=== PATIENT | male | born 1950 | race Hispanic/Latino ===

== ENCOUNTER 2017-10-22 10:03 | Day surgery (SDC) | payer MEDICARE ==
[2017-10-14 10:13] VITALS: BMI 25.4
[2017-10-22] MEDS ORDERED: ceFAZolin IV 2 gm in Dextrose 2 GM/50 ML BAG IVPB ONE (11:07)
[2017-10-22] MEDS ORDERED: Lidocaine 1% Inj (20ml) IJ ONE (11:07)
[2017-10-22] MEDS ORDERED: Bupivacaine 0.5% Inj(30mL) IJ ONE (11:07)
[2017-10-22] MEDS ORDERED: Bupivacaine 0.5% Inj(30mL) ONE (11:15)
[2017-10-22] MEDS ORDERED: Sodium Chloride 0.9% 1,000 ML IV SCH (11:15)
[2017-10-22] MEDS ORDERED: Lidocaine 1% Inj (20ml) ONE (11:15)
--- NOTE | 2017-10-22 11:21 | CP.SDSHP ---
Same Day Surgery H & P - History Proposed Procedure: R- Bunionectomy, Cheilectomy Pre-Op Diagnosis: Right hallux abductovalgus - Allergies Allergies: Allergies mold Allergy (Verified 10/22/17 11:11) COUGH - Physical Exam Vital Signs: Vital Signs 10/22/17 10/22/17 10:58 11:05 Temperature 98.3 F Pulse Rate 68 68 Respiratory 18 Rate Blood Pressure 126/75 O2 Sat by Pulse 97 Oximetry Neuro: WNL - {Optional Preform as Required} Ortho: Other - Date & Time Date: 10/22/17 Time: 11:21 Short Stay Discharge - Short Stay Discharge Admitting Diagnosis/Reason for Visit: M20.21,M20.10 Disposition: HOME/ ROUTINE Referrals: Ilana Desai DPM [Primary Care Provider] - Additional Instructions (Diet, Activity): -Patient in good/stable condition for discharge home -Pt to resume medications per medical reconciliation -Resume regular diet Please keep dressing clean, dry, & intact to surgical site -Use plastic bag over bandage for showering -Wear post op shoe at all times when ambulating -Call clinic if you see signs of infection (redness, swelling, malodor) -Please make an appointment to see Dr. Desai in office/clinic within 1 week for post-op check Progress Note/Discharge Note with Instructions: - Patient evaluated bedside in recovery s/p surgical procedure. - After surgical procedure patient in NAD - (+) Void, (+) Appetite - Capillary refill time <3s and NVSI intact. - Patient denies complaints at this time - Post operative instructions and plan of care explained to patient at length. - Pt. acknowledges understanding. - Patient stable for DC per podiatric surgery
--- NOTE | 2017-10-22 11:24 | CP.PCM.PN ---
Subjective - Date & Time of Evaluation Date of Evaluation: 10/22/17 Time of Evaluation: 11:22 - Subjective Subjective: 67 year old male patient seen and evaluated at bedside prior to right first ray surgery. Patient reports that she has been NPO since yesterday night. Patient denies of any adverse reaction to anesthesia. Patient denies of any recent F/N/V /C/SOB/CP today. Patient denies of any other pedal complains at this time and is aware of the correct procedure. PMHx: Denies PSHx: GI procedure Allergies: N.K.D.A SHx: Denies smoking, EtOH or illicit drug usage Objective - Vital Signs/Intake and Output Vital Signs (last 24 hours): Temp Pulse Resp BP Pulse Ox 98.3 F 68 18 126/75 97 10/22/17 10:58 10/22/17 11:05 10/22/17 10:58 10/22/17 10:58 10/22/17 10:58 - Medications Medications: Current Medications Cefazolin Sodium/Dextrose (Ancef Iv 2 Gm Duplex) 2 gm in 50 mls @ 50 mls/hr IVPB ONCE ONE PRN Reason: Protocol Stop: 10/22/17 12:06 Sodium Chloride (Sodium Chloride 0.9%) 1,000 mls @ 110 mls/hr IV .[id number] [facility] Stop: 10/23/17 11:08 - Constitutional Appears: Well, Non-toxic, No Acute Distress - Extremities Exam Additional comments: VASC: DP/PT pulses are palpable 2/4 B/L. Cap refill time: < 3 seconds to all digits. Skin temperature warm to cool from proximal to distal. no pitting or non -pitting edema noted DERM: no onen lesions, no inter digital maceration, mild erythema noted on the dorso-medial aspect of the 1st MTPJ, nails are cut to hygenic length, no clinical suspicion of active infection NEURO: Epicritic and protective sensation intact ORTHO: Lateral translation of hallux at the level of 1st MTPJ decreasing the 1st interspace space, no pain during AROM and PROM at 1st MTPJ, minimal traking with trackbound noted - Neurological Exam Neurological Exam: Alert, Awake, Oriented x3 - Psychiatric Exam Psychiatric exam: Normal Affect, Normal Mood Assessment and Plan - Assessment and Plan (Free Text) Assessment: 67 year old male patient with no significant PMHx was seen and evaluated for right first ray procedure Plan: Pt was seen and examined in SDS Pt NPO status was confirmed All pre-op testing and clearance in chart Pt has exhausted all conservative treatment at this time and is opting for surgical intervention Pt was explained procedure and post-operative course All pt's questions were answered to satisfaction No guarantees were made Pt understands all risks, benefits and complications of procedure Pt will follow-up with Dr. Desai within 1 week of surgery
[2017-10-22] MEDS ORDERED: Lactated Ringer's 1,000 ML IV ONE (12:00)
[2017-10-22] MEDS ORDERED: Midazolam 2 MG/2 ML VIAL ONE (12:00)
[2017-10-22] MEDS ORDERED: Propofol 10 mg/ml Inj (20 ML) ONE ×2 (12:00→12:02)
[2017-10-22] MEDS ORDERED: Succinylcholine 200 mg/10 ml Inj IV ONE (12:01)
[2017-10-22] MEDS ORDERED: Oxycodone/Acetaminophen 5/325 mg Tab PO PRN ×2 (13:23)
--- NOTE | 2017-10-22 13:27 | PCM.SURG1 ---
Surgeon's Initial Post Op Note - Surgeon's Notes Surgeon: Dr. Desai Lacquer Sizer: Dr. bales PGY-2 Type of Anesthesia: IV Sedation, Local Anesthesia Administered By: Dr. Roman Pre-Operative Diagnosis: right foot hallux valgus deformity/ hallux limitus Operative Findings: see dictation. 3-0 vicryl, 4-0 vicryl, 4-0 nylon Post-Operative Diagnosis: same Operation Performed: right foot bunionectomy/ cheilectomy Specimen/Specimens Removed: bone Estimated Blood Loss: EBL {In ML}: 2 Blood Products Given: N/A Drains Used: No Drains Post-Op Condition: Good Date of Surgery/Procedure: 10/22/17 Time of Surgery/Procedure: 12:00
[2017-10-22] MEDS ORDERED: Lactated Ringer's 1,000 ML IV SCH (13:30)
[2017-10-22 14:39] VITALS: RESP 18
[2017-10-22 15:19] VITALS: BP 126/80; PULSE 62; TEMP 97.3; O2SAT 96
--- NOTE | 2017-10-23 00:14 | OP ---
PROCEDURE DATE: 10/22/2017 PREOPERATIVE DIAGNOSES: 1. Right foot painful hallux valgus deformity. 2. Right foot painful hallux limitus deformity. POSTOPERATIVE DIAGNOSES: 1. Right foot painful hallux valgus deformity. 2. Right foot painful hallux limitus deformity. PROCEDURE: 1. Right foot surgical repair of hallux valgus deformity with bunionectomy. 2. Right foot surgical repair of hallux limitus with cheilectomy. SURGEON: Ilana Shah DPM IT ARCHITECTURE ANALYST: Palak Hernandez DPM, PGY-2 ANESTHESIOLOGIST: Keely Roman MD TYPE OF ANESTHESIA: IV sedation with local. INDICATIONS: The patient is a 67-year-old male with the above-mentioned diagnoses. The patient has exhausted multiple forms of conservative treatment at this time and now request surgical intervention. All risks, benefits, and possible complications for the post-postprocedure have been explained to the patient at length. The patient signed the consent after careful explanation of these risks, benefits, possible complications, and alternatives for surgical procedure. No guarantees were given or implied. DESCRIPTION OF PROCEDURE: The patient was then brought into the operating room and placed on the operating room table in a supine position. A time-out was performed for identification of the correct patient and procedure. The patient received a total of 10 mL of 1:1 mixture of 1% lidocaine plain and 0.5% Marcaine plain in a local block-type fashion to the right foot. Once local anesthesia was achieved, the foot was then prepped and draped in normal sterile manner and the patient's foot was elevated and the pneumatic ankle tourniquet was then inflated to 250 mmHg and the procedure began. PROCEDURE #1: Right foot surgical repair of painful hallux valgus deformity with bunionectomy. Attention was directed to the medial aspect of the first metatarsal head of the right foot where an approximately 6 cm longitudinal semi-elliptical incision was made medial and parallel to the tendon of the extensor hallucis longus involving the contour of the deformity. The incision was deepened through the subcutaneous tissues with care being taken to identify and retract all vital neurovascular structures. All bleeders were cauterized and ligated as necessary. At this time, a linear capsulotomy was performed over the medial aspect of the first metatarsophalangeal joint. The periosteal and capsular structures were then carefully dissected free of their osseous attachments and reflected medially and laterally, thus exposing the head of the first metatarsal into the operative site. Next, utilizing a sagittal bone saw, the hypertrophic medial eminence were resected and passed from the operative field and sent to pathology. Please reference the pathology reports for the size of the lesion. PROCEDURE #2: Right foot surgical repair of painful hallux limitus deformity with cheilectomy via the original incision over the right foot first metatarsophalangeal joint, there was noted to be numerous osteophyte at the dorsal aspect of the first metatarsal head and the base of the proximal phalanx. Using a sagittal saw, the hypertrophied bone was resected off of the dorsal aspect of the first metatarsal head and using a V-type osteotomy, the osteophytic bone was resected from both the head of the first metatarsal and the base of the proximal phalanx with the sagittal bone saw. The bone was then smoothed down with a bone wrap. Range of motion of the first metatarsophalangeal joint was assessed at this time and noted to be significantly increased. Correction of the deformity was assessed at this time and noted to be excellent. The incision site was then copiously irrigated with sterile normal saline. The periosteal and capsular structures were then reapproximated with 3-0 Vicryl, the subcutaneous tissue was reapproximated with 4-0 Vicryl, and the skin was reapproximated with 4-0 nylon. Postoperative injection of 10 mL of 0.5% Marcaine plain was given in a local block type fashion to the right foot. Postoperative bandage including Xeroform, 4 x 4 gauze, Deep, and Rich bandage was applied to the right foot. POSTOPERATIVE CONDITION: The patient tolerated the anesthesia and the procedure well and was escorted to the recovery room with vital signs stable and neurovascular status intact. The patient will follow up with Dr. Shah in her office on an outpatient basis. Palak Hernandez DPM Ilana Shah DPM
== END 2017-10-22 15:10 | disposition home or self-care (01) ==
LOC: H.OPSURG 10:03
PROVIDERS: ATTEND Podiatrist Foot & Ankle Surgery
DX: M20.21 Hallux rigidus, right foot (principal); K44.9 Diaphragmatic hernia without obstruction or gangrene; M20.11 Hallux valgus (acquired), right foot; M20.5X9 Other deformities of toe(s) (acquired), unspecified foot
CPT/HCPCS: 28296; 88304; 97116; 97161; G8978; G8979; G8980; J0690; J2001; J2250; J2704; J3010; J7040; J7120